=== PATIENT | female | born 1960 | race Caucasian/White ===

== ENCOUNTER 2019-11-01 21:09 | Inpatient (IN) | payer MEDICARE, OTHER ==
[~2019-11-01] VITALS: Ht 172.7 cm; Wt 77.6 kg
[2019-11-01 22:11] LABS: BASOPHILS # (AUTO) 0.1 K/uL (0.0-8.0); BASOPHILS % (AUTO) 0.7 % (0.0-2.0); EOSINOPHILS # (AUTO) 0.1 K/uL (0.0-0.7); EOSINOPHILS % (AUTO) 1.2 % (0.0-7.0); HEMATOCRIT 34.8 % (31.2-41.9); HEMOGLOBIN 11.9 g/dL (10.9-14.3); LYMPHOCYTES # (AUTO) 3.3 K/uL (20.0-40.0); LYMPHOCYTES % (AUTO) 40.4 % (20.5-51.5); MEAN CORPUSCULAR HEMOGLOBIN 29.6 uug (24.7-32.8); MEAN CORPUSCULAR HGB CONC 34 g/dL (32.3-35.6); MEAN CORPUSCULAR VOLUME 86.5 fL (75.5-95.3); MONOCYTES # (AUTO) 0.6 K/uL (2.0-10.0); MONOCYTES % (AUTO) 7.1 % (0.0-11.0); NEUTROPHILS # (AUTO) 4.2 K/uL (1.8-8.9); NEUTROPHILS % (AUTO) 50.6 % (38.5-71.5); PLATELET COUNT (AUTO) 285 K/uL (179-408); RED BLOOD CELL COUNT(AUTO) 4.02 MIL/uL (3.63-4.92); WHITE BLOOD COUNT (AUTO) 8.2 K/uL (3.8-11.8)
[2019-11-01 22:24] LABS: CARBON DIOXIDE 34 mmol/L (21-32); CHLORIDE 99 mmol/L (98-107); CREATININE 0.8 mg/dL (0.6-1.3); GLUCOSE 101 mg/dL (74-106); POTASSIUM 3.6 mmol/L (3.5-5.1); UREA NITROGEN, BLOOD 22 mg/dL (7-18)
[2019-11-01 22:29] LABS: ALANINE AMINOTRANSFERASE 41 U/L (14-59); ALKALINE PHOSPHATASE 75 U/L (50-136); ASPARTATE AMINOTRANSFERASE 25 U/L (15-37); BILIRUBIN,DIRECT 0.1 mg/dL (0.0-0.2); BILIRUBIN,TOTAL 0.2 mg/dL (0.2-1.0); TOTAL PROTEIN, SERUM 6.7 g/dL (6.4-8.2)
[2019-11-01 22:37] LABS: ETHANOL < 3 MG/DL (0-0)
[2019-11-01 22:53] LABS: ACETAMINOPHEN < 2.0 ug/mL (10-30); CREATINE KINASE, TOTAL 23 U/L (26-192)
--- NOTE | 2019-11-01 22:57 | NUR ---
Medically cleared by Dr Worthy.
[2019-11-01 23:02] LABS: THYROID STIMULATING HORMONE 2.704 mIU/mL (0.358-3.740)
--- NOTE | 2019-11-02 00:08 | NUR ---
Transfered to [facility]HU via gurny with no distress noted.
[2019-11-02 00:59] VITALS: BP 108/69
[2019-11-02] MEDS ORDERED: ZOLPIDEM 5 MG TABLET PO PRN (01:00)
[2019-11-02] MEDS ORDERED: LORAZEPAM 0.5 MG TABLET PO PRN (01:00)
[2019-11-02] MEDS ORDERED: MAG HYDROX/AL HYDROX/SIMETH 30 ML LIQUID UDC PO PRN (01:00)
[2019-11-02] MEDS ORDERED: MAGNESIUM HYDROXIDE 30 ML LIQUID UDC PO PRN (01:00)
--- NOTE | 2019-11-02 01:43 | NUR ---
GPS: Admitted to unit earlier a 59 yr.old female under the care of /SCOTTIE Marsh in fair condition. Pt.is on a 72 hour hold for DTS. Pt.overdosed on her beta-blockers in an attempt to suicide. Pt.is alert to self/place. Cooperative,hyperverbal,manic,grandiose during admission process. Poor insight to present situation. Denies wanting to hurt self at this time when asked by staff. Pt.has disorganized thoughts,tangential and has some thought blocking. Skin assessment/personal belongings list completed. Pt's rights handbook and advisement given. Unit rules explained. Safety emphasized. No resp.alliance party to notify at this time. Ambien 5mg given for insomnia as requested by pt. Will monitor effectiveness.
[2019-11-02 07:30] VITALS: BP 139/67
[2019-11-02] MEDS: ACETAMINOPHEN 325 MG TABLET PO PRN (11:27)
[2019-11-02] MEDS ORDERED: PREGABALIN 100 MG CAPSULE PO SCH (12:30)
[2019-11-02] MEDS ORDERED: SENNOSIDES 1 TABLET PO PRN (12:30)
[2019-11-02] MEDS: BACITRACIN EACHEYE SCH (12:30)
[2019-11-02] MEDS: POLYMYXIN B EACHEYE SCH (12:30)
[2019-11-02] MEDS: BUMETANIDE 1 MG TABLET PO SCH ×2 (13:45→17:44)
[2019-11-02] MEDS: hydrALAZINE HCL 50 MG TABLET PO SCH ×2 (13:45→17:00)
[2019-11-02] MEDS: LEVETIRACETAM 500 MG TABLET PO SCH ×2 (13:46→17:44)
[2019-11-02] MEDS: LOSARTAN POTASSIUM 50 MG TABLET PO SCH (13:46)
[2019-11-02 16:00] VITALS: BP 113/75
[2019-11-02] MEDS: TRAMADOL HCL 50 MG TABLET PO PRN (17:45)
--- NOTE | 2019-11-02 17:50 | NUR ---
Patient at the nurses station, is somatically focused. Told this database report writer "I'm going to have a seizure. If I don't get my medication right now, I'm going to pass out and have a seizure." Patient then threatened this database report writer "I will throw myself on the floor right here and you have to call all the security to come pick me up. I'll dislocate my leg and end up in your emergency room." Patient then noted to be hunched over the wall of the nurses station, standing, while holding the telephone in her hand. Patient educated about her own safety, impulse control, and how to appropriately communicate her needs to staff. Patient refusing to participate with education, not effective at this time. Will continue to monitor and maintain patient's safety.
--- NOTE | 2019-11-02 18:13 | NUR ---
Patient sitting in the dining room watching television. Patient seen to be leaning over the dining room chair on her left side with her eyes closed. Patient was awake, alert and responsive to name and touch. Respirations even and unlabored, no signs or symptoms of respiratory distress noted. Patient opened her eyes and said "I'm having a grand mal seizure you dumb ass." Patient provided with education about her safety and impulse control, but teaching is ineffective at this time due to patient refusal. Patient continues to sit and watch television, interact with her peers and staff.
[2019-11-02 19:57] VITALS: BP 112/72
[2019-11-02] MEDS: QUETIAPINE FUMARATE 25 MG TABLET PO SCH (20:29)
[2019-11-02] MEDS: HYDROXYZINE PAMOATE 25 MG CAPSULE PO PRN (20:29)
--- NOTE | 2019-11-02 23:32 | NUR ---
RECEIVED PATIENT IN ACTIVITY ROOM.UPON INTERACTION SHE DISPLAYS DELUSIONAL IDEATION. 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 SHE SAYS SHE HAS SEIZURES,HEART DISEASE,AND OTHER ILLNESSES.SHE ALLEGES THAT HER HEART NEEDS AN EKG, AND EEG AND ONLY A CERTAIN DOCTOR CAN 'BRING ME BACK TO LIFE.' "TRUST ME I KNOW WHAT AM TALKING ABOUT' SHE IS HYPERVERBAL SPEECH PRESSURED,RESTLESS AND UNABLE TO COMMUNICATE WITHOUT EXAGGERATIONS.SHE HOWEVER DENIES SI/HI BUT HAS POOR IMPULSE CONTROL RE-DIRECTABLE.VISUAL CHECKS MADE ON HER FOR SAFETY.WILL CONTINUE WITH MONITORING.
--- NOTE | 2019-11-03 06:44 | NUR ---
SLEPT APPROX 6;45HRS.
[2019-11-03 07:30] VITALS: BP 127/85
[2019-11-03] MEDS: hydrALAZINE HCL 50 MG TABLET PO SCH ×3 (08:46→16:07)
[2019-11-03] MEDS: LEVETIRACETAM 500 MG TABLET PO SCH ×2 (08:46→16:22)
[2019-11-03] MEDS: HYDROXYZINE PAMOATE 25 MG CAPSULE PO PRN ×2 (08:46→16:22)
[2019-11-03] MEDS: BUMETANIDE 1 MG TABLET PO SCH ×2 (08:46→16:22)
[2019-11-03] MEDS: PREGABALIN 100 MG CAPSULE PO SCH (08:47)
[2019-11-03] MEDS: LOSARTAN POTASSIUM 50 MG TABLET PO SCH (08:47)
[2019-11-03] MEDS: POLYMYXIN B EACHEYE SCH (08:48)
[2019-11-03] MEDS: BACITRACIN EACHEYE SCH (08:48)
[2019-11-03] MEDS ORDERED: DULOXETINE 30 MG CAPSULE.DR PO SCH (09:00)
[2019-11-03] MEDS: GABAPENTIN 100 MG CAPSULE PO SCH ×2 (12:21→16:22)
[2019-11-03 16:04] VITALS: BP 99/53
[2019-11-03] MEDS: TRAMADOL HCL 50 MG TABLET PO PRN (16:22)
[2019-11-03 20:00] VITALS: BP 144/82
[2019-11-03] MEDS: QUETIAPINE FUMARATE 25 MG TABLET PO SCH (20:36)
[2019-11-03] MEDS: ACETAMINOPHEN 325 MG TABLET PO PRN (22:50)
--- NOTE | 2019-11-04 01:07 | NUR ---
RECEIVED PATIENT IN ACTIVITY ROOM. SHE WAS PLEASANT UPON APPROACH BUT STILL EXHIBIT GRANDIOSE DELUSIONS.SHE SAYS HER [place] IS BEING HELD IN 3 DAYS. SHE IS HYPERVERBAL,EXAGGERATES HER ILLNESSES, AND HER MOOD IS LABILE. SHE IS RE-DIRECTABLE. VISUAL CHECKS MADE ON HER FOR SAFETY.
--- NOTE | 2019-11-04 06:21 | NUR ---
SLEPT FOR ABOUT 4;00HRS.HAD A SHOWER THIS MORNING.IN ACTIVITY ROOM.
[2019-11-04 07:30] VITALS: BP 123/74
[2019-11-04] MEDS: BACITRACIN EACHEYE SCH (08:57)
[2019-11-04] MEDS: POLYMYXIN B EACHEYE SCH (08:57)
[2019-11-04] MEDS: BUMETANIDE 1 MG TABLET PO SCH ×2 (08:58→16:19)
[2019-11-04] MEDS: LEVETIRACETAM 500 MG TABLET PO SCH ×2 (08:58→16:19)
[2019-11-04] MEDS: PREGABALIN 100 MG CAPSULE PO SCH (08:58)
[2019-11-04] MEDS: GABAPENTIN 100 MG CAPSULE PO SCH ×3 (08:58→16:19)
[2019-11-04] MEDS: HYDROXYZINE PAMOATE 25 MG CAPSULE PO PRN ×2 (08:58→22:06)
[2019-11-04] MEDS: hydrALAZINE HCL 50 MG TABLET PO SCH ×3 (08:59→16:19)
[2019-11-04] MEDS: LOSARTAN POTASSIUM 50 MG TABLET PO SCH (08:59)
--- NOTE | 2019-11-04 10:37 | NUR ---
Social Work Note/Initial Discharge Plan: Patient resided at [address] [address]; ([phone]). This speech writer spoke with Maggie who stated that patient has not been here for a month and that this is a temporarily placement for patient. Per Dayami she stated that she is not accepted back. Patient agreed for this speech writer to find a SNF for pt. shortage worker will work with the pt and the MD regarding appropriate discharge planning. shortage worker will form a safe and proper discharge.
--- NOTE | 2019-11-04 10:37 | NUR ---
Social Work Note/Family Contact: lithopone mill worker contacted patients ex- William ([phone]) and discussed patients discharge plan and treatment plan. Per William, he stated that he does not want to be involved in her care and will not picker patient upon dc. This board writer discussed that patient needs a safe place upon dc. Per William, he stated that he is uncertain where patient resides and that patient does not have any family members.
--- NOTE | 2019-11-04 10:39 | NUR ---
Social Work Note/Coordination of Care: caustic plant worker contacted [facility] ([phone]) and spoke to Dayami ward who stated that this was a temporarily stay for patient and that she is not accepted back.
--- NOTE | 2019-11-04 10:40 | NUR ---
Social Work Note: probation worker discussed placement options with patient. She stated that she is willing for this account underwriter to find a SNF placement for her. This account underwriter will work with the psychiatrist to find a safe placement.
--- NOTE | 2019-11-04 11:12 | NUR ---
Patient is agitated, intrusive, and angry. Patient at the nurses station verbalizing to staff that if she is not discharged to "[facility]" then she will physically harm staff. "I'm a double community health advisor, I can take all of you down and if you don't let me out to be in the arms of my lover then I will come take you all down! Call security and I will take them all down with you!" Patient banging her fists on the nurses station wall. Patient is not redirectable, refusing to participate in education, she is yelling and cursing at staff, has poor insight into her mental health and has no concern for her safety or the safety of others. notified, orders given for Zyprexa 10 mg IM. IM administered without adverse reaction. Patient provided with education about impulse control and safety, continues to be anxious, agitated, and demanding to be discharged.
[2019-11-04] MEDS ORDERED: OLANZAPINE 10 MG VIAL IM ONE (11:15)
--- NOTE | 2019-11-04 12:21 | NUR ---
Social Work Note/Coordination of Care: stove bottom worker contacted Skip huynh from [facility] ([phone]) and sent patients [facility] psychiatric notes and progress notes.
--- NOTE | 2019-11-04 14:22 | NUR ---
Social Work Note/Substance Abuse Intervention: Patient was provided with a brief substance abuse intervention and referred to [facility] , [facility] , and [facility] .
[2019-11-04 15:16] VITALS: BP 110/62
[2019-11-04 20:00] VITALS: BP 148/65
[2019-11-04] MEDS: QUETIAPINE FUMARATE 100 MG TABLET PO SCH (20:21)
[2019-11-04] MEDS: TRAMADOL HCL 50 MG TABLET PO PRN (20:27)
[2019-11-04] MEDS ORDERED: QUETIAPINE FUMARATE 25 MG TABLET PO SCH (21:00)
[2019-11-05 06:08] LABS: *BILIRUBIN,URIN NEGATIVE (NEGATIVE); *BLOOD, URINE NEGATIVE (NEGATIVE); *CLARITY,URINE SLIGHTLY CLOUDY (CLEAR); *COLOR,URINE YELLOW (YELLOW); *KETONES,URINE NEGATIVE (NEGATIVE); *UROBILINOGEN,URINE 0.2 E.U./dl (NORMAL); LEUKOCYTE ESTERASE ,URINE NEGATIVE (NEGATIVE); NITRITE, URINE NEGATIVE (NEGATIVE); UGLUCOSE NEGATIVE (NEGATIVE)
[2019-11-05 06:17] LABS: *AMPHETAMINE, URINE NEGATIVE (NEGATIVE); *BARBITURATE, URINE NEGATIVE (NEGATIVE); *CANNABINOID, URINE POSITIVE (NEGATIVE); *COCCAINE, URINE NEGATIVE (NEGATIVE); *OPIATE, URINE NEGATIVE (NEGATIVE); *PHENCYCLIDINE SCREEN,URINE NEGATIVE (NEGATIVE)
[2019-11-05 07:39] VITALS: BP 107/86
[2019-11-05] MEDS: BUMETANIDE 1 MG TABLET PO SCH ×2 (08:48→16:59)
[2019-11-05] MEDS: GABAPENTIN 300 MG CAPSULE PO SCH ×3 (08:49→16:59)
[2019-11-05] MEDS: LOSARTAN POTASSIUM 50 MG TABLET PO SCH (08:49)
[2019-11-05] MEDS: LEVETIRACETAM 500 MG TABLET PO SCH ×2 (08:49→16:59)
[2019-11-05] MEDS: PREGABALIN 100 MG CAPSULE PO SCH (08:49)
[2019-11-05] MEDS: BACITRACIN EACHEYE SCH (08:51)
[2019-11-05] MEDS: hydrALAZINE HCL 50 MG TABLET PO SCH ×3 (08:51→16:59)
[2019-11-05] MEDS: POLYMYXIN B EACHEYE SCH (08:51)
[2019-11-05] MEDS ORDERED: GABAPENTIN 100 MG CAPSULE PO SCH (09:00)
[2019-11-05] MEDS: ACETAMINOPHEN 325 MG TABLET PO PRN (10:19)
[2019-11-05] MEDS: HYDROXYZINE PAMOATE 25 MG CAPSULE PO PRN (12:17)
--- NOTE | 2019-11-05 14:06 | NUR ---
Social Work Note/Individual Therapy: munitions factory worker met with patient for brief counseling. munitions factory worker assessed for patients level of suicidality. Patient denies SI. This junior underwriter informed if patient were to have suicidal ideation to discuss with this worker. This junior underwriter provided mental health referrals to patient such as [facility] Crisis Line ( ), [place] Suicide Prevention Lifeline ( ) , [facility] Substance Abuse Helpline ( ).
--- NOTE | 2019-11-05 14:09 | NUR ---
Social Work Note/PC Hearing Notification: workers' compensation commissioner contacted patients ex- William, ([phone]) and notified patients probable cause of hearing today. This life insurance underwriter left a voicemail.
--- NOTE | 2019-11-05 14:09 | NUR ---
Social Work Note/Firearms Report: Sales Director completed and submitted a [employer] firearms report for 5250 grave disability certification. A copy of report has been placed in patient chart.
--- NOTE | 2019-11-05 14:10 | NUR ---
Social Work Note/Coordination of Care: drag out worker contacted Santos admin coordinator from [facility] ([phone]) and sent H & P psychiatric notes and progress notes. Per Santos, patient is accepted.
--- NOTE | 2019-11-05 14:11 | NUR ---
Social Work Note/Coordination of Care: transportation maintenance worker contacted Skip huynh from [facility] ([phone]) and faxed [facility] & P psychiatric notes and progress notes. Per Skip, he stated that patient is not accepted due to behavioral issues.
[2019-11-05 15:45] VITALS: BP 92/54
[2019-11-05] MEDS: QUETIAPINE FUMARATE 100 MG TABLET PO SCH (20:01)
[2019-11-05 20:30] VITALS: BP 123/69
[2019-11-06 07:30] VITALS: BP 126/77
[2019-11-06] MEDS: PREGABALIN 100 MG CAPSULE PO SCH (08:17)
[2019-11-06] MEDS: GABAPENTIN 300 MG CAPSULE PO SCH ×2 (08:18→13:27)
[2019-11-06] MEDS: LEVETIRACETAM 500 MG TABLET PO SCH (08:18)
[2019-11-06] MEDS: LOSARTAN POTASSIUM 50 MG TABLET PO SCH (08:18)
--- NOTE | 2019-11-06 08:27 | NUR ---
Social Work Note/Discharge: Patient will be discharged to shelter [facility] [address] [place] [address] ([phone]). Please arrange Ambulance transportation for patient to be picked up at 3:30pm. Fresco Artist spoke with Santos, Anesthesia Assistant at the facility who stated patient will be accepted at facility today. Patient is alert and oriented x4 and is not able to plan for self-care at this time but is willing to accept care provided for her at the facility. Patient denies suicidal or homicidal ideation and is aware and agreeable with discharge plans. Patients ex- William ([phone]) is aware and agreeable. Patient will follow-up at the facility with Psychiatrist Dr. Nelson and Clerical Production Worker Dr. Arenas and will discuss smoking cessation and address substance abuse dependency. Patient was provided with outpatient mental health resources to [facility] Crisis Line , and the [place] Suicide Prevention Lifeline . Patient signed the homeless patient waiver form. Patient was provided with additional resources such as the homeless chcf packet, which includes a list of emergency shelters, housing resources, drop in centers, and showers/hot meals centers. This also included the Homeless Information Hotline (221)-902-8291 or 211, [place] for [employer] , and the [facility] (619)-779-8319. Patient was provided with a brief substance abuse intervention and referred to [facility] , [facility] , and [facility] . Patient presents with euthymic and congruent mood. Addendum: 11/06/19 at 1040 by YONI DUKE Disregard patients psychiatrist in the notes. Patients psychiatrist at [facility] will be .
[2019-11-06] MEDS: hydrALAZINE HCL 50 MG TABLET PO SCH ×2 (08:36→13:00)
[2019-11-06] MEDS: BUMETANIDE 1 MG TABLET PO SCH (08:36)
[2019-11-06] MEDS: POLYMYXIN B EACHEYE SCH (08:44)
[2019-11-06] MEDS: BACITRACIN EACHEYE SCH (08:44)
[2019-11-06] MEDS: TRAMADOL HCL 50 MG TABLET PO PRN (09:19)
[2019-11-06] MEDS: ACETAMINOPHEN 325 MG TABLET PO PRN (11:22)
[2019-11-06 13:24] VITALS: BP 100/66
--- NOTE | 2019-11-06 13:25 | NUR ---
Social Work Note/Individual Therapy: flying squad worker met with patient for brief counseling. flying squad worker assessed for patients level of suicidality. Patient denies SI. This caption writer provided mental health referrals to patient such as [facility] Crisis Line ( ), [place] Suicide Prevention Lifeline ( ) , [facility] Substance Abuse Helpline ( ). flying squad worker encouraged patient to contact either family, hotline, or a professional if patient were to have suicidal thoughts. This caption writer also encouraged patient to alert either this caption writer or the nursing staff.
[2019-11-06] MEDS: HYDROXYZINE PAMOATE 25 MG CAPSULE PO PRN (13:27)
[2019-11-06 16:00] VITALS: BP 144/78
--- NOTE | 2019-11-06 16:30 | NUR ---
Pt is being discharge to [facility]. Pt is aware and willing to go. Pt is A/O x4. VS are stable. No distress. All belongings returned. Report given to the facility.
== END 2019-11-06 16:30 | DRG 885 ==
LOC: ER 21:12 → GPS 23:41
PROVIDERS: ADMIT Psychiatry & Neurology Psychiatry; ATTEND Nurse Practitioner Acute Care
DX: F31.9 Bipolar disorder, unspecified (principal); T46.5X2D Poisoning by other antihypertensive drugs, intentional self-harm, subsequent encounter; I95.2 Hypotension due to drugs; Y92.89 Other specified places as the place of occurrence of the external cause; G40.909 Epilepsy, unspecified, not intractable, without status epilepticus; G89.4 Chronic pain syndrome; I10 Essential (primary) hypertension; I25.2 Old myocardial infarction; M54.9 Dorsalgia, unspecified; R79.89 Other specified abnormal findings of blood chemistry; E86.0 Dehydration; Z76.5 Malingerer [conscious simulation]
CPT/HCPCS: 36415; 80307; 84443; 85025; 87086; 93005; A4663; G0480; G0480-TC; J2358